=== PATIENT | male | born 1950 | race Caucasian/White ===

== ENCOUNTER 2021-08-07 10:40 | Inpatient (IN) ==
[2021-08-07] MEDS ORDERED: SODIUM CHLORIDE 0.9% 1,000 ML IV STA ×3 (11:14→14:09)
[2021-08-07 11:43] LABS: Basophils % 0.2 % (0.0-0.8); Eosinophils % 0.1 % (0.00-10.9); Hematocrit 44.6 VOL% (42.0-52.0); Hemoglobin 14.2 GM/DL (14.0-18.0); Immature Granulocytes % 0.7 %; Immature Granulocytes Absolute 0.16 #; Lymphocytes # 0.6 10*3/uL (1.4-4.0); Lymphocytes % 2.5 % (21.2-54.2); Mean Corpuscular HGB Conc 31.8 GM/DL (32-36); Mean Corpuscular Volume 80.8 FL (87-102); Mean Platelet Volume 9.7 FL (9.6-12.0); Monocytes % 5.9 % (1.7-12.7); Neutrophils % 90.6 % (38.7-73.9); Platelet Count 277 T/CUMM (130-400); Red Blood Count 5.52 MC/CUMM (3.8-5.5); Red Cell Distribution Width 17.6 % (9.3-17.3); White Blood Count 22.1 T/CUMM (4-12)
[2021-08-07 12:11] LABS: Albumin 2.3 G/DL (3.4-5.0); Calcium 9.1 MG/DL (8.5-10.1); Osmolality,Calculated 272.2 MOS/KG (273-304); Potassium 4.2 MMOL/L (3.5-5.1); Total Protein 8.1 G/DL (6.4-8.2)
[2021-08-07 12:47] LABS: Lymphocytes 3 % (20-55); Segmented Neutrophils 89 % (50-85); Total Cells Counted 100
[2021-08-07 12:48] LABS: Platelet Estimate Normal
[2021-08-07 12:50] LABS: Polychromasia Slight
[2021-08-07 12:51] LABS: Tear Drop Cells Few
[2021-08-07 13:12] LABS: INR 1.6; PT Patient Result 17.7 SECS (10.5-12.0)
[2021-08-07] MEDS ORDERED: ALBUTEROL 2.5 MG/3 ML NEB RESP TX PRN (15:16)
[2021-08-07] MEDS ORDERED: ONDANSETRON 4 MG/2 ML VIAL IV PRN (15:16)
[2021-08-07] MEDS ORDERED: ACETAMINOPHEN 325 MG TABLET PO PRN (15:16)
[2021-08-07] MEDS ORDERED: NOREPINEPHRINE 4 MG/4 ML VIAL IV ONE (15:48)
[2021-08-07] MEDS: NOREPINEPHRINE 8 MG in SODIUM CHLORIDE 0.9% 242 ML IV PRN (16:30)
[2021-08-07 16:31] LABS: Amorphous Crystals,Urine Occasional /HPF (Few); Mucus,Urine Occasional /LPF (Occasional); RBC,Urine 1 /HPF (0-4)
[2021-08-07 16:32] LABS: Bilirubin,Urine Small mg/dL (Negative); Blood, Urine Negative (Negative); Glucose,Urine (UA) Negative (Negative); Ketones,Urine Negative (Negative); Nitrite,Urine Negative (Negative); Protein,Urine 1+ mg/dL (Negative); Urine Appearance Slightly Cloudy (Clear); Urine Color Yellow (Yellow)
[2021-08-07] MEDS: PANTOPRAZOLE 40 MG VIAL IV SCH (17:30)
[2021-08-07] MEDS: PIPERACILLIN/TAZOBACTAM 3,375 MG in SODIUM CHLORIDE 0.9% 100 ML IV SCH (18:00)
[2021-08-07] MEDS: ALBUTEROL/IPRATROPIUM 3 ML NEB RESP TX SCH (19:00)
[2021-08-08] MEDS: PIPERACILLIN/TAZOBACTAM 3,375 MG in SODIUM CHLORIDE 0.9% 100 ML IV SCH ×3 (00:50→16:12)
[2021-08-08] MEDS: NOREPINEPHRINE 8 MG in SODIUM CHLORIDE 0.9% 242 ML IV PRN (00:50)
[2021-08-08] MEDS: ALBUTEROL/IPRATROPIUM 3 ML NEB RESP TX SCH ×4 (03:49→20:14)
[2021-08-08] MEDS: SODIUM CHLORIDE 0.9% 1,000 ML IV SCH ×6 (04:20→20:30)
[2021-08-08 06:14] LABS: Basophils # 0.1 10*3/uL (0.0-0.2); Basophils % 0.3 % (0.0-0.8); Eosinophils % 0.1 % (0.00-10.9); Hematocrit 41.2 VOL% (42.0-52.0); Hemoglobin 13.1 GM/DL (14.0-18.0); Immature Granulocytes % 0.7 %; Immature Granulocytes Absolute 0.13 #; Lymphocytes # 1.2 10*3/uL (1.4-4.0); Lymphocytes % 5.9 % (21.2-54.2); Mean Corpuscular HGB Conc 31.8 GM/DL (32-36); Mean Corpuscular Volume 81.9 FL (87-102); Mean Platelet Volume 9.7 FL (9.6-12.0); Monocytes % 8.3 % (1.7-12.7); Neutrophils % 84.7 % (38.7-73.9); Platelet Count 278 T/CUMM (130-400); Red Blood Count 5.03 MC/CUMM (3.8-5.5); Red Cell Distribution Width 17.8 % (9.3-17.3); White Blood Count 19.9 T/CUMM (4-12)
[2021-08-08 06:20] LABS: PT Patient Result 21.3 SECS (10.5-12.0)
[2021-08-08] MEDS ORDERED: GLUCAGON 1 MG VIAL IM PRN (08:43)
[2021-08-08] MEDS ORDERED: DEXTROSE 10% 250 ML BAG IV PRN (08:49)
[2021-08-08 08:59] LABS: Albumin 1.9 G/DL (3.4-5.0); Bilirubin,Total 0.9 MG/DL (0.20-1.00); Calcium 8.7 MG/DL (8.5-10.1); Osmolality,Calculated 270.9 MOS/KG (273-304); Potassium 4.4 MMOL/L (3.5-5.1); Risk Ratio 3.32; Total Protein 7.2 G/DL (6.4-8.2); VLDL Cholesterol 18.8 MG/DL
[2021-08-08] MEDS: INSULIN REGULAR 100 UNIT/ML SUBCUT SCH ×3 (11:41→20:10)
[2021-08-08] MEDS: METOPROLOL SUCCINATE XL 100 MG TABLET PO SCH ×2 (11:58→20:54)
[2021-08-08] MEDS: DIGOXIN 0.25 MG TABLET PO SCH (12:06)
[2021-08-08] MEDS ORDERED: ZALEPLON 5 MG CAPSULE PO PRN (12:39)
[2021-08-08] MEDS: PANTOPRAZOLE 40 MG VIAL IV SCH (16:09)
[2021-08-08] MEDS ORDERED: NEOMYCIN/POLYMYXIN/BACITRACIN OINT 0.9 GM PACK TOP PRN (16:26)
[2021-08-08] MEDS: DILTIAZEM CD 300 MG CAPSULE PO SCH (17:28)
[2021-08-08] MEDS: SERTRALINE 100 MG TABLET PO SCH (20:53)
[2021-08-08] MEDS: GABAPENTIN 300 MG CAPSULE PO SCH (20:54)
[2021-08-08] MEDS: SIMVASTATIN 40 MG TABLET PO SCH (20:54)
[2021-08-09] MEDS: ALBUTEROL/IPRATROPIUM 3 ML NEB RESP TX SCH ×4 (00:45→19:10)
[2021-08-09] MEDS: PIPERACILLIN/TAZOBACTAM 3,375 MG in SODIUM CHLORIDE 0.9% 100 ML IV SCH ×4 (00:51→17:07)
[2021-08-09] MEDS: SODIUM CHLORIDE 0.9% 1,000 ML IV SCH ×2 (04:03→16:41)
[2021-08-09 05:17] LABS: Basophils % 0.2 % (0.0-0.8); Eosinophils % 0.1 % (0.00-10.9); Hematocrit 33.4 VOL% (42.0-52.0); Hemoglobin 10.5 GM/DL (14.0-18.0); Immature Granulocytes % 0.7 %; Immature Granulocytes Absolute 0.13 #; Lymphocytes # 0.9 10*3/uL (1.4-4.0); Lymphocytes % 4.9 % (21.2-54.2); Mean Corpuscular HGB Conc 31.4 GM/DL (32-36); Mean Corpuscular Volume 82.5 FL (87-102); Mean Platelet Volume 9.4 FL (9.6-12.0); Monocytes % 6.1 % (1.7-12.7); Platelet Count 207 T/CUMM (130-400); Red Blood Count 4.05 MC/CUMM (3.8-5.5); Red Cell Distribution Width 17.9 % (9.3-17.3); White Blood Count 17.5 T/CUMM (4-12)
[2021-08-09 05:29] LABS: INR 2.2
[2021-08-09 05:36] LABS: Albumin 1.2 G/DL (3.4-5.0); Bilirubin,Total 0.7 MG/DL (0.20-1.00); Calcium 6.5 MG/DL (8.5-10.1); Osmolality,Calculated 282.5 MOS/KG (273-304); Potassium 3.5 MMOL/L (3.5-5.1); Total Protein 5.2 G/DL (6.4-8.2)
[2021-08-09 05:43] LABS: Band Neutrophils 2 % (0-10); Hypochromia 1+; Lymphocytes 5 % (20-55); Microcytosis 1+; Polychromasia Slight; Segmented Neutrophils 84 % (50-85); Total Cells Counted 100
[2021-08-09] MEDS ORDERED: PHYTONADIONE 5 MG/5 ML ORAL.SYR PO ONE ×2 (07:56→13:26)
[2021-08-09] MEDS: INSULIN REGULAR 100 UNIT/ML SUBCUT SCH ×4 (08:02→20:48)
[2021-08-09] MEDS: SODIUM BICARBONATE 650 MG TABLET PO SCH ×2 (08:22→20:38)
[2021-08-09] MEDS: PANTOPRAZOLE 40 MG TABLET PO SCH (08:22)
[2021-08-09] MEDS: ARIPiprazole 15 MG TABLET PO SCH (08:22)
[2021-08-09] MEDS: DILTIAZEM CD 300 MG CAPSULE PO SCH (08:22)
[2021-08-09] MEDS: METOPROLOL SUCCINATE XL 100 MG TABLET PO SCH ×2 (08:22→20:38)
[2021-08-09] MEDS: DIGOXIN 0.25 MG TABLET PO SCH (14:45)
[2021-08-09] MEDS: SIMVASTATIN 40 MG TABLET PO SCH (20:38)
[2021-08-09] MEDS: SERTRALINE 100 MG TABLET PO SCH (20:38)
[2021-08-09] MEDS: GABAPENTIN 300 MG CAPSULE PO SCH (20:39)
[2021-08-09] MEDS: HEPARIN 5,000 UNIT/1 ML VIAL SUBCUT SCH (21:35)
[2021-08-10] MEDS: ALBUTEROL/IPRATROPIUM 3 ML NEB RESP TX SCH ×4 (00:17→19:40)
[2021-08-10] MEDS: PIPERACILLIN/TAZOBACTAM 3,375 MG in SODIUM CHLORIDE 0.9% 100 ML IV SCH ×3 (01:57→17:20)
[2021-08-10 05:49] LABS: Basophils # 0.1 10*3/uL (0.0-0.2); Basophils % 0.4 % (0.0-0.8); Eosinophils # 0.1 10*3/uL (0.0-0.87); Eosinophils % 0.6 % (0.00-10.9); Hematocrit 42.8 VOL% (42.0-52.0); Immature Granulocytes % 1.7 %; Immature Granulocytes Absolute 0.36 #; Lymphocytes # 1.5 10*3/uL (1.4-4.0); Lymphocytes % 6.8 % (21.2-54.2); Mean Corpuscular HGB Conc 31.1 GM/DL (32-36); Mean Corpuscular Volume 83.1 FL (87-102); Mean Platelet Volume 9.6 FL (9.6-12.0); Monocytes % 7.8 % (1.7-12.7); Neutrophils % 82.7 % (38.7-73.9); Red Cell Distribution Width 18.2 % (9.3-17.3); White Blood Count 21.7 T/CUMM (4-12)
[2021-08-10 05:56] LABS: INR 1.1; PT Patient Result 12.3 SECS (10.5-12.0)
[2021-08-10 06:04] LABS: Hemoglobin 13.3 GM/DL (14.0-18.0); Platelet Count 348 T/CUMM (130-400); Red Blood Count 5.15 MC/CUMM (3.8-5.5)
[2021-08-10 06:12] LABS: Lymphocytes 7 % (20-55); Platelet Estimate Adequate; Segmented Neutrophils 81 % (50-85); Total Cells Counted 100
[2021-08-10 06:13] LABS: Albumin 1.7 G/DL (3.4-5.0); Bilirubin,Total 1.2 MG/DL (0.20-1.00); Calcium 9.1 MG/DL (8.5-10.1); Osmolality,Calculated 276.1 MOS/KG (273-304); Potassium 3.7 MMOL/L (3.5-5.1); Total Protein 7.2 G/DL (6.4-8.2)
[2021-08-10] MEDS: HEPARIN 5,000 UNIT/1 ML VIAL SUBCUT SCH (06:33)
[2021-08-10] MEDS: INSULIN REGULAR 100 UNIT/ML SUBCUT SCH ×4 (08:06→22:16)
[2021-08-10] MEDS: METOPROLOL SUCCINATE XL 100 MG TABLET PO SCH ×2 (09:41→21:26)
[2021-08-10] MEDS: PANTOPRAZOLE 40 MG TABLET PO SCH (09:41)
[2021-08-10] MEDS: DILTIAZEM CD 300 MG CAPSULE PO SCH (09:41)
[2021-08-10] MEDS: ARIPiprazole 15 MG TABLET PO SCH (09:41)
[2021-08-10] MEDS: SODIUM BICARBONATE 650 MG TABLET PO SCH ×2 (09:41→21:25)
[2021-08-10] MEDS ORDERED: TAMSULOSIN 0.4 MG CAPSULE PO ONE (13:00)
[2021-08-10] MEDS: DIGOXIN 0.25 MG TABLET PO SCH (13:25)
[2021-08-10] MEDS: SODIUM CHLORIDE 0.9% 1,000 ML IV SCH (15:20)
[2021-08-10] MEDS: SIMVASTATIN 40 MG TABLET PO SCH (21:26)
[2021-08-10] MEDS: SERTRALINE 100 MG TABLET PO SCH (21:26)
[2021-08-10] MEDS: GABAPENTIN 300 MG CAPSULE PO SCH (21:26)
[2021-08-11] MEDS: PIPERACILLIN/TAZOBACTAM 3,375 MG in SODIUM CHLORIDE 0.9% 100 ML IV SCH ×3 (01:30→16:26)
[2021-08-11] MEDS: ALBUTEROL/IPRATROPIUM 3 ML NEB RESP TX SCH ×4 (01:40→19:43)
[2021-08-11] MEDS: INSULIN REGULAR 100 UNIT/ML SUBCUT SCH ×4 (07:41→23:22)
[2021-08-11] MEDS: METOPROLOL SUCCINATE XL 100 MG TABLET PO SCH ×2 (09:00→21:45)
[2021-08-11 09:18] LABS: Basophils # 0.1 10*3/uL (0.0-0.2); Basophils % 0.3 % (0.0-0.8); Eosinophils # 0.1 10*3/uL (0.0-0.87); Eosinophils % 0.6 % (0.00-10.9); Hematocrit 40.3 VOL% (42.0-52.0); Hemoglobin 12.6 GM/DL (14.0-18.0); Immature Granulocytes % 1.8 %; Immature Granulocytes Absolute 0.32 #; Lymphocytes # 1.2 10*3/uL (1.4-4.0); Lymphocytes % 6.7 % (21.2-54.2); Mean Corpuscular HGB Conc 31.3 GM/DL (32-36); Mean Corpuscular Volume 82.4 FL (87-102); Mean Platelet Volume 9.6 FL (9.6-12.0); Monocytes % 8.8 % (1.7-12.7); Neutrophils % 81.8 % (38.7-73.9); Platelet Count 382 T/CUMM (130-400); Red Blood Count 4.89 MC/CUMM (3.8-5.5); Red Cell Distribution Width 18.4 % (9.3-17.3); White Blood Count 17.4 T/CUMM (4-12)
[2021-08-11 09:42] LABS: Albumin 1.6 G/DL (3.4-5.0); Bilirubin,Total 0.8 MG/DL (0.20-1.00); Calcium 8.5 MG/DL (8.5-10.1); Osmolality,Calculated 281.5 MOS/KG (273-304); Potassium 4.2 MMOL/L (3.5-5.1); Total Protein 6.8 G/DL (6.4-8.2)
[2021-08-11] MEDS ORDERED: DIAZEPAM 5 MG TABLET PO ONE (10:30)
[2021-08-11] MEDS ORDERED: SODIUM CHLORIDE 0.45% 1,000 ML IV SCH (11:00)
[2021-08-11] MEDS: ARIPiprazole 15 MG TABLET PO SCH (16:26)
[2021-08-11] MEDS: SODIUM BICARBONATE 650 MG TABLET PO SCH ×2 (16:26→21:44)
[2021-08-11] MEDS: PANTOPRAZOLE 40 MG TABLET PO SCH (16:26)
[2021-08-11] MEDS: DIGOXIN 0.25 MG TABLET PO SCH (16:26)
[2021-08-11] MEDS: DILTIAZEM CD 300 MG CAPSULE PO SCH (16:27)
[2021-08-11] MEDS ORDERED: WARFARIN 7.5 MG TABLET PO SCH (20:00)
[2021-08-11] MEDS: GABAPENTIN 300 MG CAPSULE PO SCH (21:45)
[2021-08-11] MEDS: HEPARIN 5,000 UNIT/1 ML VIAL SUBCUT SCH (21:45)
[2021-08-11] MEDS: SIMVASTATIN 40 MG TABLET PO SCH (21:45)
[2021-08-11] MEDS: SERTRALINE 100 MG TABLET PO SCH (21:45)
[2021-08-12] MEDS: ALBUTEROL/IPRATROPIUM 3 ML NEB RESP TX SCH ×3 (00:12→13:36)
[2021-08-12] MEDS: PIPERACILLIN/TAZOBACTAM 3,375 MG in SODIUM CHLORIDE 0.9% 100 ML IV SCH ×2 (00:39→10:01)
[2021-08-12] MEDS: HEPARIN 5,000 UNIT/1 ML VIAL SUBCUT SCH ×2 (04:57→14:42)
[2021-08-12 06:26] LABS: INR 1.1; PT Patient Result 12.2 SECS (10.5-12.0)
[2021-08-12 06:39] LABS: Albumin 1.5 G/DL (3.4-5.0); Bilirubin,Total 0.6 MG/DL (0.20-1.00); Calcium 8.2 MG/DL (8.5-10.1); Osmolality,Calculated 280.5 MOS/KG (273-304); Potassium 3.8 MMOL/L (3.5-5.1); Total Protein 6.2 G/DL (6.4-8.2)
[2021-08-12 06:50] LABS: Basophils # 0.1 10*3/uL (0.0-0.2); Basophils % 0.4 % (0.0-0.8); Eosinophils # 0.3 10*3/uL (0.0-0.87); Eosinophils % 2.1 % (0.00-10.9); Hematocrit 39.9 VOL% (42.0-52.0); Hemoglobin 12.3 GM/DL (14.0-18.0); Immature Granulocytes % 2.8 %; Immature Granulocytes Absolute 0.34 #; Lymphocytes # 1.2 10*3/uL (1.4-4.0); Lymphocytes % 9.8 % (21.2-54.2); Mean Corpuscular HGB Conc 30.8 GM/DL (32-36); Mean Corpuscular Volume 84.9 FL (87-102); Mean Platelet Volume 9.8 FL (9.6-12.0); Monocytes % 9.8 % (1.7-12.7); Neutrophils % 75.1 % (38.7-73.9); Platelet Count 383 T/CUMM (130-400); Red Cell Distribution Width 18.6 % (9.3-17.3); White Blood Count 12.3 T/CUMM (4-12)
[2021-08-12] MEDS: SODIUM CHLORIDE 0.9% 1,000 ML IV SCH (10:00)
[2021-08-12] MEDS: SODIUM BICARBONATE 650 MG TABLET PO SCH (10:01)
[2021-08-12] MEDS: DILTIAZEM CD 300 MG CAPSULE PO SCH (10:01)
[2021-08-12] MEDS: ARIPiprazole 15 MG TABLET PO SCH (10:01)
[2021-08-12] MEDS: PANTOPRAZOLE 40 MG TABLET PO SCH (10:01)
[2021-08-12] MEDS: METOPROLOL SUCCINATE XL 100 MG TABLET PO SCH (10:01)
[2021-08-12] MEDS: INSULIN REGULAR 100 UNIT/ML SUBCUT SCH ×3 (10:08→15:34)
[2021-08-12 11:28] VITALS: BP 118/52
[2021-08-12] MEDS: DIGOXIN 0.25 MG TABLET PO SCH (14:41)
[2021-08-12] MEDS ORDERED: AMOXICILLIN/CLAV 875 MG TABLET PO SCH (21:00)
== END 2021-08-12 16:33 | disposition home or self-care (01) | DRG 871 ==
LOC: N.ED 10:40 → N.EDINP 15:16 → SUATTDRO 15:16 → N.EDINP 19:46 → N.CC 20:07 → N.5E 08-09 12:06
PROVIDERS: ADMIT Internal Medicine; ATTEND Hospitalist

== ENCOUNTER 2022-07-17 07:34 | Observation (INO) ==
[2022-07-17] MEDS ORDERED: ASPIRIN 325 MG TABLET PO STA (08:26)
[2022-07-17] MEDS ORDERED: NITROGLYCERIN SL 0.4 MG TABLET SL PRN (08:26)
[2022-07-17] MEDS ORDERED: MORPHINE 2 MG/1 ML SYRINGE IV STA (08:26)
[2022-07-17 08:35] LABS: Basophils # 0.1 10*3/uL (0.0-0.2); Basophils % 0.4 % (0.0-0.8); Eosinophils # 0.1 10*3/uL (0.0-0.87); Eosinophils % 0.6 % (0.00-10.9); Hematocrit 46.6 VOL% (42.0-52.0); Hemoglobin 14.3 GM/DL (14.0-18.0); Immature Granulocytes % 0.4 %; Immature Granulocytes Absolute 0.07 #; Lymphocytes # 1.1 10*3/uL (1.4-4.0); Mean Corpuscular HGB Conc 30.7 GM/DL (32-36); Mean Corpuscular Volume 87.6 FL (87-102); Mean Platelet Volume 10.2 FL (9.6-12.0); Monocytes # 1.6 10*3/uL (0.11-0.8); Monocytes % 9.7 % (1.7-12.7); Neutrophils % 81.9 % (38.7-73.9); Platelet Count 262 T/CUMM (130-400); Red Blood Count 5.32 MC/CUMM (3.8-5.5); Red Cell Distribution Width 15.7 % (9.3-17.3); White Blood Count 16.06 T/CUMM (4-12)
[2022-07-17 08:45] LABS: Calcium 9.1 MG/DL (8.5-10.1); Potassium 4.5 MMOL/L (3.5-5.1)
[2022-07-17 08:49] LABS: PT Patient Result 20.6 SECS (10.1-12.1); Partial Thromboplastin Time 35.5 SECS (23.7-32.9)
[2022-07-17] MEDS ORDERED: ONDANSETRON 4 MG/2 ML VIAL IV PRN (14:09)
[2022-07-17] MEDS ORDERED: ACETAMINOPHEN 325 MG TABLET PO PRN (14:09)
[2022-07-17] MEDS ORDERED: POTASSIUM CHLORIDE 20 MEQ TABLET PO PRN (14:11)
[2022-07-17] MEDS ORDERED: TEMAZEPAM 15 MG CAPSULE PO PRN (14:11)
[2022-07-17] MEDS: INSULIN LISPRO 100 UNIT/ML SUBCUT SCH ×2 (16:28→21:04)
[2022-07-17] MEDS ORDERED: WARFARIN 5 MG TABLET PO SCH (18:00)
[2022-07-17] MEDS ORDERED: ARIPiprazole 15 MG TABLET PO SCH (21:00)
[2022-07-17] MEDS ORDERED: GABAPENTIN 300 MG CAPSULE PO SCH (21:00)
[2022-07-17] MEDS ORDERED: LATANOPROSTENE BUNOD 0.024% RIGHT EYE SCH (21:00)
[2022-07-17] MEDS ORDERED: SIMVASTATIN 40 MG TABLET PO SCH (21:00)
[2022-07-17] MEDS ORDERED: SERTRALINE 100 MG TABLET PO SCH (21:00)
[2022-07-17] MEDS: METOPROLOL SUCCINATE XL 100 MG TABLET PO SCH (21:01)
[2022-07-18 06:11] LABS: Basophils # 0.1 10*3/uL (0.0-0.2); Basophils % 0.4 % (0.0-0.8); Eosinophils # 0.1 10*3/uL (0.0-0.87); Eosinophils % 0.7 % (0.00-10.9); Hematocrit 42.9 VOL% (42.0-52.0); Hemoglobin 13.6 GM/DL (14.0-18.0); Immature Granulocytes % 0.4 %; Immature Granulocytes Absolute 0.06 #; Lymphocytes # 1.7 10*3/uL (1.4-4.0); Mean Corpuscular HGB Conc 31.7 GM/DL (32-36); Mean Corpuscular Volume 88.3 FL (87-102); Monocytes # 2.1 10*3/uL (0.11-0.8); Monocytes % 15.4 % (1.7-12.7); Neutrophils % 71.1 % (38.7-73.9); Platelet Count 204 T/CUMM (130-400); Red Blood Count 4.86 MC/CUMM (3.8-5.5); Red Cell Distribution Width 15.9 % (9.3-17.3)
[2022-07-18 06:22] LABS: INR 2.1; PT Patient Result 22.1 SECS (10.1-12.1)
[2022-07-18 07:02] LABS: Albumin 2.8 G/DL (3.4-5.0); Calcium 8.8 MG/DL (8.5-10.1); Osmolality,Calculated 277.7 MOS/KG (273-304); Potassium 4.2 MMOL/L (3.5-5.1); Risk Ratio 1.85; Thyroid Stimulating Hormone 2.93 uIU/ml (0.358-3.74); Total Protein 7.5 G/DL (6.4-8.2)
[2022-07-18] MEDS: INSULIN LISPRO 100 UNIT/ML SUBCUT SCH (07:25)
[2022-07-18] MEDS ORDERED: lisinopriL 10 MG TABLET PO SCH (09:00)
[2022-07-18] MEDS ORDERED: FUROSEMIDE 40 MG TABLET PO SCH (09:00)
[2022-07-18] MEDS ORDERED: DIGOXIN 0.125 MG TABLET PO SCH (09:00)
[2022-07-18] MEDS ORDERED: PANTOPRAZOLE 40 MG TABLET PO SCH (09:00)
[2022-07-18] MEDS ORDERED: DILTIAZEM CD 300 MG CAPSULE PO SCH (09:00)
[2022-07-18] MEDS ORDERED: NON-FORMULARY MEDICATION (Omeprazole 20 MG capsule,delayed release(DR/EC)) PO SCH (09:00)
[2022-07-18] MEDS ORDERED: ERGOCALCIFEROL 50,000 UNIT CAPSULE PO SCH (09:00)
[2022-07-18] MEDS ORDERED: buPROPion SR 150 MG TABLET PO SCH (09:00)
[2022-07-18] MEDS: METOPROLOL SUCCINATE XL 100 MG TABLET PO SCH (09:13)
[2022-07-18 11:54] VITALS: BP 136/95
[2022-07-19] MEDS ORDERED: WARFARIN 10 MG TABLET PO SCH (18:00)
== END 2022-07-18 13:41 | disposition home or self-care (01) ==
LOC: N.ED 07:34 → N.EDINP 07:34 → N.2W 16:00
PROVIDERS: ADMIT Internal Medicine; ATTEND Internal Medicine